=== PATIENT | female | born 1970 | race Caucasian/White ===

== ENCOUNTER → 2016-06-10 | Outpatient (CLI) | payer OTHER ==
--- NOTE | 2016-06-14 09:46 | SLEEPHOME ---
DATE OF PROCEDURE: 06/10/2016 REFERRING PROVIDER: Radha Decker NP INTERPRETATION: Diagnostic home sleep testing was performed due to concern for the obstructive sleep apnea syndrome in this patient with a history of excessive somnolence, nonrestorative sleep, comorbidities of hypertension and diabetes. For testing, a NOX-T3 respiratory monitoring device was utilized. Continuous record was made of pulse, oxygen saturation, chest and abdominal strain, air flow, and body position. 9 hours and 59 minutes of data were reviewed. Of these, 8 hours and 59 minutes were marked as time in bed. During the interval marked time in bed, there were 49 respiratory events identified of 10 seconds in duration or greater for a respiratory event index of 5.5 per hour. The events were primarily obstructive. Baseline oxygen saturation was 91%. Lowest oxygen saturation 85%. Average heart rate 110. Pulse rate ranged 80 to 132. Testing was performed in both the supine and nonsupine positions. IMPRESSION: Abnormal home sleep test with repetitive respiratory events and oxygen desaturations to 85% with a respiratory event index of 5.5 is consistent with the obstructive sleep apnea syndrome. RECOMMENDATION: The patient should be referred for formal in laboratory pressure titration given the occurrence of significant oxygen desaturations.
== END ==
LOC: M SLEEP 06-06 14:27
PROVIDERS: ATTEND Nurse Practitioner Adult Health
DX: G47.30 Sleep apnea, unspecified (principal); R40.0 Somnolence

== ENCOUNTER → 2016-12-30 | Outpatient (CLI) | payer OTHER ==
[~2016-12-30] MED LIST: AMMO12CR4 TOP; ATOR1TAB21 PO; ATOR40TA75 PO; DILT120C82 PO; EFFE75CA75 PO; HYDR-3713 PO; INDE80CA PO; LAMI25TA PO; LATA5OPD OU; LISI20TA PO; NICO4GUM8 PO; NICODIS TD; OMEP40CA2 PO; ONDA4TAB6 PO; OXYB5TAB10 PO; PAXI20TA29 PO; TIZA4CAP3 PO; TOPI25TA10 PO; TRAZ50TA11 PO; VENTAER INH; [UNRECOGNIZED DRUG - CODE] MT
--- NOTE | 2016-12-30 16:22 | REP ---
MRI CERVICAL SPINE: HISTORY: Neck pain. COMPARISON: 05/20/2016 The prior examination showed a C5-6 disc bulge along with degenerative facet and uncovertebral joint changes bilaterally causing mild bilateral foraminal stenosis. The craniovertebral junction is unchanged. No abnormal signal has developed in the imaged portion of the spinal cord. Vertebral body height and alignment is unchanged remaining within normal limits. Loss of disc space height and disc hydrational signal is again seen, status quo. At the C2-3 level, there is no change. There is no disc herniation, foraminal narrowing or central canal stenosis. At the C3-4 level, there is no change. There is no disc herniation, foraminal narrowing or central canal stenosis. At the C4-5 level, there is no change. There is no disc herniation, foraminal narrowing or central canal stenosis. At the C5-6 level, note is again made of a broad-based annular bulge seen in conjunction with mild degenerative facet and uncovertebral joint changes bilaterally. There is mild bilateral foraminal stenosis, status quo. No acute disc extrusion or madelaine central canal stenosis has developed, however, there is mild effacement of the anterior thecal sac. At the C6-7 level, there is no change. There is no disc herniation, foraminal narrowing or central canal stenosis. There is no change at the C7-T1 level. There is no abnormality. IMPRESSION: Broad-based annular bulge and other findings at the C5-6 level essentially unchanged from the prior examination as described above. Signed by Meliton Hernandez DO 12/30/2016 04:49 P
== END ==
LOC: M PLARAD 13:29
PROVIDERS: ATTEND Nurse Practitioner Family
DX: M54.2 Cervicalgia (principal); M51.37 Other intervertebral disc degeneration, lumbosacral region; M51.36 Other intervertebral disc degeneration, lumbar region; M47.812 Spondylosis without myelopathy or radiculopathy, cervical region; M79.1 Myalgia; M54.16 Radiculopathy, lumbar region; M47.817 Spondylosis without myelopathy or radiculopathy, lumbosacral region

== ENCOUNTER 2018-10-26 12:53 | Day surgery (SDC) | payer OTHER ==
[~2018-10-26] VITALS: Ht 165.1 cm; Wt 128.1 kg
[~2018-10-26 12:53] MED LIST changes: +ADME100I SC; -AMMO12CR4 TOP; +AMMO12CR7 TOP; +BASA100I SC; +CETI10CH PO; -DILT120C82 PO; +DILT1CAP PO; +EFFE75CA2 PO; -EFFE75CA75 PO; -INDE80CA PO; +INDE80CA9 PO; +LATA0.0013 OU; +LATA0.0015 OU; -LATA5OPD OU; +LISI20TA3 PO; +METO100T5 PO; +NICO21DI34 TD; -NICODIS TD; +NS 1,000 ML IV ONE; +PARO30TA3 PO; +SING10TA32 PO; +STEG5TAB PO; +TIZA4CAP PO; -TIZA4CAP3 PO; +TRAZ-160 PO; -TRAZ50TA11 PO; +TRUL0.5I SC; +VENL150C43 PO; +VITATAB64 PO
[2018-10-26] MEDS ORDERED: fentaNYL 100 MCG/2 ML INJECTION (J3010) As Ordered ONE (14:56)
[2018-10-26] MEDS ORDERED: PROPOFOL 200 MG/20 ML VIAL As Ordered ONE (14:56)
[2018-10-26] MEDS ORDERED: LIDOCAINE 2% INJ 100 MG/5 ML SDV (FOR ANES.) As Ordered ONE (14:56)
--- NOTE | 2018-10-26 15:11 | ROOR ---
Patient Name: Maryann Richard Procedure Date: 10/26/2018 2:46 PM Date of : 1970 Age: 48 Room: [facility] Gender: Female Note Status: Finalized Procedure: Upper GI endoscopy Indications: Epigastric abdominal pain, Heartburn, Follow-up of gastroparesis, Early satiety, Eructation, Nausea Providers: Franklin JUSTIN MD Referring MD: MICHELLE ART MD Requesting Provider: Medicines: Monitored Anesthesia Care Complications: No immediate complications. Procedure: Pre-Anesthesia Assessment: - The heart rate, respiratory rate, oxygen saturations, blood pressure, adequacy of pulmonary ventilation, and response to care were monitored throughout the procedure. The Endoscope was introduced through the mouth, and advanced to the second part of duodenum. The upper GI endoscopy was accomplished without difficulty. The patient tolerated the procedure well. Findings: The examined esophagus was normal. A single 10 mm submucosal papule (nodule) with no stigmata of recent bleeding was found in the gastric antrum. Keyhole biopsies were taken with a cold forceps for histology. Endoclips x 2 placed. The exam of the stomach was otherwise normal. (large volume/compliant) The examined duodenum was normal. Impression: - Normal esophagus. - A single 1 cm submucosal papule (nodule) found in the stomach. Biopsied, endoclips x 2 placed. - The stomach is otherwise normal. - Normal examined duodenum. Recommendation: - Telephone endoscopist for pathology results in 2 weeks. - Gastroparesis diet: - Eat smaller, more frequent meals throughout the day. - Low fat diet. - Liquid/soft foods are tolerated better than solid foods. - Low fiber/well cooked vegetables are tolerated better than high fiber/fibrous foods/raw vegetables. - Avoid medications that inhibit gastric/intestinal motility such as narcotic medications. Franklin Justin MD Franklin JUSTIN MD 10/26/2018 3:10:49 PM Electronically signed by Franklin JUSTIN MD Number of Addenda: 0 Note Initiated On: 10/26/2018 2:46 PM Estimated Blood Loss: Estimated blood loss: none.
[2018-10-26 15:38] VITALS: BP 106/67
== END 2018-10-26 16:15 | disposition home or self-care (01) ==
LOC: M OPP 12:53
PROVIDERS: ATTEND Internal Medicine Gastroenterology
DX: R10.13 Epigastric pain (principal); R12 Heartburn; R68.81 Early satiety; R14.2 Eructation; R11.0 Nausea; K31.89 Other diseases of stomach and duodenum; K31.84 Gastroparesis
CPT/HCPCS: 43239; 88305; J3010

== ENCOUNTER → 2019-07-08 | Outpatient (CLI) | payer OTHER ==
[~2019-07-08] MED LIST changes: -LISI20TA PO; +LISI20TA19 PO; +LISI20TA20 PO; -LISI20TA3 PO; -NS 1,000 ML IV ONE; -OMEP40CA2 PO; +OMEP40CA97 PO; +PROHANCE 279.3MG/ML 5ML VIAL (A9576) As Ordered ONE; -TRAZ-160 PO; +TRAZ-252 PO
--- NOTE | 2019-07-08 12:44 | REP ---
MRI LIVER AND ABDOMEN WITHOUT AND WITH IV CONTRAST: HISTORY: Fatty infiltration versus mass lesion in the liver. Abnormal findings on diagnostic imaging of the liver and biliary tract. Comparison is made with CT imaging of the abdomen pelvis and [facility] January 07, 2019. TECHNIQUE: Axial and coronal imaging planes utilized. T1- and T2-weighted sequences include spin-echo, fast spin echo, diffusion, in and [id number], and dynamically acquired pre and postcontrast T1 fat sat imaging. Gadolinium enhancement dose is 10 mL of intravenous ProHance. MRI FINDINGS: The right kidney is again noted to be absent, presumably post surgically. No intrahepatic or extrahepatic biliary ductal dilation is seen. The pancreatic duct is normal in appearance. No pancreatic mass or upper abdominal lymphadenopathy is seen. Bilaterally normal adrenal glands are visible. Diffusion weighted scan show no focal area of restricted diffusion. There is considerable signal dropout throughout most of the liver on [id number] imaging consistent with moderate fatty infiltration. There are areas of fat sparing in the right and left lobe of the liver anteriorly under the costal margin. This corresponds to the pattern on CT. No focal liver mass lesion is appreciated. Pre- and postcontrast imaging of the liver shows no additional abnormality. The spleen is normal in size and homogeneous in texture. Study is otherwise unremarkable. Left kidney shows no abnormality. IMPRESSION: There is evidence of moderate fatty infiltration of the liver. No hepatic or other abdominal mass lesion seen. Right kidney absent. Electronically Signed by Derrick Adrian MD 07/08/2019 03:17 P
== END ==
LOC: M RAD 10:12
PROVIDERS: ATTEND Internal Medicine Gastroenterology
DX: R93.2 Abnormal findings on diagnostic imaging of liver and biliary tract (principal)
CPT/HCPCS: 74183; A9576

== ENCOUNTER 2019-08-16 12:55 | Day surgery (SDC) | payer OTHER ==
[~2019-08-16] VITALS: Ht 165.1 cm; Wt 114.8 kg
[~2019-08-16 12:55] MED LIST changes: +NS 1,000 ML IV ONE; -PROHANCE 279.3MG/ML 5ML VIAL (A9576) As Ordered ONE
[2019-08-16] MEDS ORDERED: LIDOCAINE 2% INJ 100 MG/5 ML SDV (FOR ANES.) As Ordered ONE (13:23)
[2019-08-16] MEDS ORDERED: propofoL 200 MG/20 ML VIAL As Ordered ONE (13:23)
--- NOTE | 2019-08-16 15:06 | ROOR ---
Patient Name: Maryann Richard Procedure Date: 08/16/2019 8:03 AM Date of : 1970 Age: 49 Room: [facility] Gender: Female Note Status: Finalized Procedure: Upper GI endoscopy Indications: Surveillance procedure- follow up gastric nodule, Gastroparesis Providers: Franklin JUSTIN MD Referring MD: MICHELLE ART MD Requesting Provider: Medicines: Monitored Anesthesia Care Complications: No immediate complications. Procedure: Pre-Anesthesia Assessment: - The heart rate, respiratory rate, oxygen saturations, blood pressure, adequacy of pulmonary ventilation, and response to care were monitored throughout the procedure. The Endoscope was introduced through the mouth, and advanced to the second part of duodenum. The upper GI endoscopy was accomplished without difficulty. The patient tolerated the procedure well. Findings: The examined esophagus was normal. A single 8 mm papule (nodule) was found in the gastric antrum. Biopsies were taken with a cold forceps for histology. The exam of the stomach was otherwise normal. The examined duodenum was normal. Impression: - Normal esophagus. - A single papule (nodule) found in the stomach antrum (this is unchanged from previous exam). Biopsied. - Normal examined duodenum. Recommendation: - Observe patient's clinical course. - Gastroparesis diet: - Eat smaller, more frequent meals throughout the day. - Low fat diet. - Liquid/soft foods are tolerated better than solid foods. - Low fiber/well cooked vegetables are tolerated better than high fiber/fibrous foods/raw vegetables. - Avoid medications that inhibit gastric/intestinal motility such as narcotic medications. - Telephone endoscopist for pathology results in 2 weeks. Franklin Justin MD Franklin JUSTIN MD 08/16/2019 3:05:48 PM Electronically signed by Franklin JUSTIN MD Number of Addenda: 0 Note Initiated On: 08/16/2019 8:03 AM Estimated Blood Loss: Estimated blood loss: none.
[2019-08-16 15:08] VITALS: BP 115/74
[2019-08-16] MEDS ORDERED: HumaLOG INSULIN (NovoLOG) PER UNIT SC ONE (17:00)
== END 2019-08-16 19:00 | disposition home or self-care (01) ==
LOC: M OPP 12:55
PROVIDERS: ATTEND Internal Medicine Gastroenterology
DX: K31.89 Other diseases of stomach and duodenum (principal); K31.84 Gastroparesis; D13.1 Benign neoplasm of stomach; I10 Essential (primary) hypertension; E78.00 Pure hypercholesterolemia, unspecified; E11.9 Type 2 diabetes mellitus without complications; R12 Heartburn; M79.7 Fibromyalgia; F41.9 Anxiety disorder, unspecified; F32.9 Major depressive disorder, single episode, unspecified; G43.909 Migraine, unspecified, not intractable, without status migrainosus; F17.210 Nicotine dependence, cigarettes, uncomplicated; J44.9 Chronic obstructive pulmonary disease, unspecified; G47.30 Sleep apnea, unspecified; Z88.1 Allergy status to other antibiotic agents; Z88.2 Allergy status to sulfonamides; Z91.09 Other allergy status, other than to drugs and biological substances; Z79.4 Long term (current) use of insulin; Z79.899 Other long term (current) drug therapy

== ENCOUNTER 2019-11-03 13:02 | Inpatient (IN) | payer OTHER ==
[~2019-11-03] VITALS: Ht 165.1 cm; Wt 110.7 kg
[~2019-11-03 13:02] MED LIST changes: -NS 1,000 ML IV ONE
[2019-11-03 14:55] VITALS: BP 132/96
[2019-11-03] MEDS ORDERED: VITA50005 PO ×2 (15:37)
[2019-11-03] MEDS ORDERED: ATOR80TA59 PO (15:37)
--- NOTE | 2019-11-03 16:05 | HPEPDOC ---
General Date of Admission November 03, 2019 at 14:57 Date of Service: November 03, 2019 Chief Complaint The patient is a 49-year-old female admitted with a reason for visit of Abscess. Source: Patient Exam Limitations: No limitations Timing/Duration: Day(s) Severity: Moderate History of Present Illness Patient is 49 years old female with past medical history of type 2 diabetes, COPD, obesity, hypertension, anxiety who was transferred from the [facility] with left inguinal abscess. Patient stated that on 10/10/19 the left inguinal abscess was drained in the [facility]. After that patient was on the course of antibiotics including Zosyn, vancomycin, clindamycin. Patient stated that around 3-4 days ago she started feeling that abscess was growing again rapidly increasing in size. Patient denied fever, chills, nausea, vomit ing. Patient was found to have white blood count 12.1. Hemoglobin 12.4 potassium 3.4, creatinine 1.4. CT was done and showed large phlegmon in the left groin. Patient denies fever, chills, nausea, vomiting, chest pain, palpitations, diarrhea or dysuria Home Medications Scheduled Ammonium Lactate (Ammonium Lactate) 12 % Cre, 1 DOSE TOP PRN, (Reported) FEET Atorvastatin Calcium (Atorvastatin Calcium) 80 Mg Tablet, 80 MG PO QHS, (Reported) Cetirizine HCl (Cetirizine HCl) 10 Mg Tab.chew, 10 MG PO DAILY, (Reported) Dulaglutide (Trulicity) 1.5 Mg/0.5 Ml Pen.injctr, 1.5 MG SC Q7D, (Reported) MONDAYS Ergocalciferol (Vitamin D2) (Vitamin D2) 50,000 Units Cap, 50,000 UNITS PO QWEEK, (Reported) MONDAYS Ertugliflozin Pidolate (Steglatro) 5 Mg Tablet, 5 MG PO DAILY, (Reported) Insulin Glargine,Hum.rec.anlog (Basaglar Shayikpen U-100) 100 Unit/1 Ml Insuln.pen, 60 UNIT SC BID, (Reported) Insulin Lispro (Admelog) 100 Unit/1 Ml Vial, 6 UNIT SC QAM, (Reported) Insulin Lispro (Admelog) 100 Unit/1 Ml Vial, 8 UNIT SC DAILY, (Reported) NOON WITH LUNCH Insulin Lispro (Admelog) 100 Unit/1 Ml Vial, 12 UNIT SC QPM, (Reported) DINNER Lamotrigine (Lamictal) 25 Mg Tab, 25 PO BID, (Reported) Lisinopril/Hydrochlorothiazide (Lisinopril-Hctz 20-25 mg Tab) 1 Each Tablet, 1 TAB PO QHS, (Reported) Metoprolol Tartrate (Metoprolol Tartrate) 100 Mg Tablet, 100 MG PO BID, (Reported) Montelukast Sodium (Singulair) 10 Mg Tablet, 10 MG PO QHS, (Reported) Omeprazole (Omeprazole) 40 Mg Cap, 40 PO BID, (Reported) Oxybutynin Chloride (Oxybutynin Chloride) 5 Mg Tab, 5 MG PO BID, (Reported) BREAKFAST Venlafaxine HCl (Venlafaxine HCl ER) 150 Mg Cap.er.24h, 150 MG PO DAILY, (Reported) Scheduled PRN Ondansetron (Ondansetron Odt) 4 Mg Tab, 4 MG PO Q6H PRN for NAUSEA OR VOMITING, (Reported) Allergies Coded Allergies: TAPE (Verified Allergy, Mild, redness, itching, 08/08/19) sulfamethoxazole (Verified Allergy, Unknown, tremors, 08/08/19) trimethoprim (Verified Allergy, Unknown, tremors, 08/08/19) Past Medical History Medical History Diabetes type 2, hyperglycemia, nephrolithiasis, COPD, sleep apnea, obesity, current smoker, acid reflux, morbid obesity, hyperlipidemia, hirsutism, anxiety, diabetes neuropathy, staghorn kidney stone right Surgical History Right nephrectomy in 2014, appendectomy, carpal tunnel surgery, cholecystectomy, hysterectomy, nephrectomy Family History I personally reviewed family history and found not pertinent Social History * Smoker: current smoker Alcohol: Denies Drugs: denies A-FIB/CHADSVASC A-FIB History Current/History of A-Fib/PAF?: No Current PO Anticoag Therapy: No Review of Systems Constitutional: Denies: Chills, Fever Eyes: Denies: Pain, Vision change ENT: Denies: Head Aches Skin: Reports: Lesions (left inguinal abscess) Pulmonary: Denies: Dyspnea Cardiovascular: Denies: Chest Pain Gastrointestinal: Denies: Nausea, Vomiting Genitourinary: Denies: Dysuria, Frequency Hematologic: Denies: Bruising Endocrine: Denies: Polydipsia, Polyphagia Neurological: Denies: Weakness Psych: Reports: Mood Normal Physical Examination General Exam: Positive: Alert, Cooperative Eye Exam: Positive: PERRLA, Conjunctiva & lids normal ENT Exam: Positive: Atraumatic Neck Exam: Positive: Supple; Negative: JVD Chest Exam: Positive: Clear to auscultation Heart Exam: Positive: Rate Normal Telemetry: Positive: No significant arrhythmia Abdomen Exam: Positive: Normal bowel sounds, Other (left inguinal abscess) Extremity Exam: Negative: Clubbing, Cyanosis Skin Exam: Positive: Lesion (left inguinal abscess 10 cm over 8 cm) Neuro Exam: Positive: Strength at 5/5 X4 ext, Cranial Nerves 3-12 NL Psych Exam: Positive: Mental status NL Vital Signs Vital Signs Date Time Temp Pulse Resp B/P (MAP) Pulse Ox O2 Delivery O2 Flow Rate FiO2 11/03/19 14:55 98.3 95 16 132/96 (108) 99 Room Air Assessment/Plan Patient is 49 years old female with past medical history of type 2 diabetes, COPD, obesity, hypertension, anxiety who was transferred from the [facility] with left inguinal abscess. Patient stated that on 10/10/19 the left inguinal abscess was drained in the [facility]. After that patient was on the course of antibiotics including Zosyn, vancomycin, clindamycin. Patient stated that around 3-4 days ago she started feeling that abscess was growing again rapidly increasing in size. Patient denied fever, chills, nausea, vomiting. Patient was found to have white blood count 12.1. Hemoglobin 12.4 potassium 3.4, creatinine 1.4. CT was done and showed large phlegmon in the left groin. Patient denies fever, chills, nausea, vomiting, chest pain, palpitations, diarrhea or dysuria Problems (1) Abscess Status: Acute Problem Text: Left inguinal abscess Appreciate/agree with surgical consult IV vancomycin and Zosyn IV MRSA screen (2) Type 2 diabetes mellitus Problem Text: Diabetes diet Insulin sliding scale Detemir 60 units twice a day (3) Hyperlipidemia Status: Chronic Problem Text: Continue statins (4) Hypertension Status: Chronic Problem Text: Blood pressure currently is under control Continue home meds (5) GERD (gastroesophageal reflux disease) Status: Chronic Problem Text: Continue Protonix Plan / VTE VTE Prophylaxis Ordered?: Yes DROZHZHIN,MARIELLA DO November 03, 2019 16:05
[2019-11-03] MEDS ORDERED: DEXTROSE 50% 50 ML SYRINGE IV PRN (16:15)
[2019-11-03] MEDS ORDERED: GLUCOSE 4GM CHEW TABLET PO PRN (16:15)
[2019-11-03] MEDS ORDERED: LACTIC ACID 12% LOTION 225 GM BTL TOP PRN (16:15)
[2019-11-03] MEDS ORDERED: ONDANSETRON 4 MG ORAL DISINTEGRATING TAB PO PRN (16:15)
[2019-11-03] MEDS ORDERED: GLUCAGON INJ 1MG VIAL SC PRN (16:15)
[2019-11-03 16:34] LABS: HEMATOCRIT 38.9 % (36.0-47.0); HEMOGLOBIN 12.6 g/dl (12.0-15.5); MEAN CORPUSCULAR HEMOGLOBIN 29.3 pg (27.0-33.0); MEAN CORPUSCULAR HGB CONC 32.4 g/dl (32.0-36.5); MEAN CORPUSCULAR VOLUME 90.5 fl (80.0-96.0); PLATELET COUNT, AUTOMATED 175 10^3/uL (150-450); WHITE BLOOD COUNT 13.7 10^3/uL (4.0-10.0)
[2019-11-03 16:58] LABS: ALBUMIN 2.7 GM/DL (3.2-5.2); BILIRUBIN,TOTAL 0.3 MG/DL (0.2-1.0); CALCIUM LEVEL 6.1 MG/DL (8.5-10.1); CREATININE FOR GFR 1.35 MG/DL (0.55-1.30); GLOMERULAR FILTRATION RATE 44.2 (>51); POTASSIUM SERUM 3.5 MEQ/L (3.5-5.1); TOTAL PROTEIN 6.7 GM/DL (6.4-8.2)
[2019-11-03] MEDS ORDERED: VANCOMYCIN HCL 1,000 MG, VIAL MATE ADAPTER 1 EACH in D5W 250 ML IV ONE (17:00)
[2019-11-03] MEDS: HumaLOG INSULIN (NovoLOG) PER UNIT SC SCH ×2 (17:30→21:00)
[2019-11-03] MEDS ORDERED: traMADol 50 MG TAB PO PRN (17:45)
[2019-11-03] MEDS: PIPERACILLIN/TAZOBACTAM SOD 3.375 GM in D5W MINI-BAG PLUS 50 ML IV SCH (19:02)
[2019-11-03] MEDS: MONTELUKAST 10 MG TAB PO SCH (21:38)
[2019-11-03] MEDS: hydroCHLOROthiazide 25 MG TAB PO SCH (21:38)
[2019-11-03] MEDS: ATORVASTATIN 20 MG TAB PO SCH (21:38)
[2019-11-03] MEDS: lamoTRIgine 25 MG TAB PO SCH (21:38)
[2019-11-03] MEDS: OMEPRAZOLE 20 MG CAP PO SCH (21:38)
[2019-11-03] MEDS: METOPROLOL TARTRATE 100 MG TAB PO SCH (21:39)
[2019-11-03] MEDS: lisinopriL 20 MG TAB PO SCH (21:39)
[2019-11-03] MEDS: HEPARIN SOD (PORCINE) 5000UNITS/ML VIAL (J1644 PER 1000UNITS) SC SCH (21:39)
[2019-11-03] MEDS: LEVEMIR (INSULIN DETEMIR) 1 UNITS/0.01ML SC SCH (21:40)
[2019-11-03] MEDS: oxyBUTYnin 5 MG TAB PO SCH (21:41)
[2019-11-03] MEDS: VANCOMYCIN HCL 1,000 MG, VIAL MATE ADAPTER 1 EACH in D5W 250 ML IV SCH (21:42)
[2019-11-03 22:00] VITALS: BP_SYST 120; BP_SYST 170; BP_DIAS 83; BP_DIAS 92
[2019-11-04] MEDS: PIPERACILLIN/TAZOBACTAM SOD 3.375 GM in D5W MINI-BAG PLUS 50 ML IV SCH ×3 (00:12→14:13)
[2019-11-04 06:00] VITALS: BP 112/58
[2019-11-04 06:05] LABS: HEMATOCRIT 34.9 % (36.0-47.0); MEAN CORPUSCULAR HGB CONC 31.5 g/dl (32.0-36.5); MEAN CORPUSCULAR VOLUME 92.1 fl (80.0-96.0); PLATELET COUNT, AUTOMATED 162 10^3/uL (150-450); RED BLOOD COUNT 3.79 10^6/uL (4.00-5.40); WHITE BLOOD COUNT 11.2 10^3/uL (4.0-10.0)
[2019-11-04 06:33] LABS: CALCIUM LEVEL 5.9 MG/DL (8.5-10.1); CREATININE FOR GFR 1.33 MG/DL (0.55-1.30); MAGNESIUM LEVEL 0.4 MG/DL (1.8-2.4); POTASSIUM SERUM 3.3 MEQ/L (3.5-5.1)
[2019-11-04] MEDS: MAG SULF 1GM/100ML (MAG RUN) 1 GM in IV 1 EA IV SCH ×2 (07:06→08:24)
[2019-11-04] MEDS: HumaLOG INSULIN (NovoLOG) PER UNIT SC SCH ×4 (07:30→20:31)
[2019-11-04] MEDS ORDERED: POTASSIUM CHLORIDE 10 MEQ SR TABLET PO ONE (08:00)
[2019-11-04] MEDS: CALCIUM GLUCONATE 1,000 MG in D5W MINI-BAG PLUS 100 ML IV ONE ×2 (10:18→12:52)
[2019-11-04] MEDS: VENLAFAXINE **XR** 75MG CAPSULE PO SCH (10:18)
[2019-11-04] MEDS: OMEPRAZOLE 20 MG CAP PO SCH ×2 (10:19→20:42)
[2019-11-04] MEDS: lamoTRIgine 25 MG TAB PO SCH ×2 (10:19→20:41)
[2019-11-04] MEDS: oxyBUTYnin 5 MG TAB PO SCH ×2 (10:20→20:42)
[2019-11-04] MEDS: CETIRIZINE (ZyrTEC) 10 MG TAB PO SCH (10:20)
[2019-11-04] MEDS: LEVEMIR (INSULIN DETEMIR) 1 UNITS/0.01ML SC SCH ×2 (10:20→20:41)
[2019-11-04] MEDS: HEPARIN SOD (PORCINE) 5000UNITS/ML VIAL (J1644 PER 1000UNITS) SC SCH ×3 (10:20→20:41)
[2019-11-04] MEDS: METOPROLOL TARTRATE 100 MG TAB PO SCH ×2 (10:29→20:31)
[2019-11-04] MEDS: VANCOMYCIN HCL 1,000 MG, VIAL MATE ADAPTER 1 EACH in D5W 250 ML IV SCH (11:31)
[2019-11-04] MEDS ORDERED: CLIN150C14 PO (11:40)
[2019-11-04] MEDS ORDERED: MAG SULF 1GM/100ML (MAG RUN) 1 GM in IV 1 EA IV ONE ×2 (12:00→14:15)
[2019-11-04] MEDS ORDERED: MAGNESIUM GLUCONATE 500 MG TAB PO ONE ×2 (13:00→15:00)
[2019-11-04 14:00] VITALS: BP 93/50
[2019-11-04 14:04] LABS: CALCIUM LEVEL 6.1 MG/DL (8.5-10.1); CREATININE FOR GFR 1.55 MG/DL (0.55-1.30); GLOMERULAR FILTRATION RATE 37.7 (>51); MAGNESIUM LEVEL 0.9 MG/DL (1.8-2.4); POTASSIUM SERUM 3.5 MEQ/L (3.5-5.1)
[2019-11-04] MEDS ORDERED: POTASSIUM PHOSPHATE INJ 20 MMOL in D5W 250 ML IV ONE ×2 (15:00→16:00)
--- NOTE | 2019-11-04 16:36 | IPNPDOC ---
Text Note Date of Service The patient was seen on 11/04/19. NOTE Subjective: No any acute events overnight. Patient denied fever, chills, naus ea, vomiting, diarrhea or dysuria Objective: VITAL SIGNS: Please see below. GENERAL: Morbidly obese female HEENT: NCAT, anicteric sclera, BRANDY NECK: supple, no JVD CARDIOVASCULAR EXAMINATION: NS1S2, regular rate/rhythm RESPIRATORY EXAMINATION: CTA b/l, no wheezes/rales/rhonchi ABDOMINAL EXAMINATION: positive bowel sounds x 4, NT, obese, leuk trase in The Left Inguinal Area EXTREMITIES: +1 edema bilaterally SKIN: warm, no rashes. NEUROLOGICAL EXAMINATION: AAO x 3, no motor/sensory deficits Assessment and plan: Patient is 49 years old female with past medical history of type 2 diabetes, COPD, obesity, hypertension, anxiety who was transferred from the [facility] with left inguinal abscess. Patient stated that on 10/10/19 the left inguinal abscess was drained in the [facility]. After that patient was on the course of antibiotics including Zosyn, vancomycin, clindamycin. Patient stated that around 3-4 days ago she started feeling that abscess was growing again rapidly increasing in size. Patient denied fever, chills, nausea, vomiting. Patient was found to have white blood count 12.1. Hemoglobin 12.4 potassium 3.4, creatinine 1.4. CT was done and showed large phlegmon in the left groin. Patient denies fever, chills, nausea, vomiting, chest pain, palpitations, diarrhea or dysuria. Surgical team consulted patient, Dr Rocha recommended packing and dressing daily. On 11/04/19 patient developed profound hypomagnesemia. Replaced. Most likely discharge tomorrow (1) Abscess Left inguinal abscess By mouth clindamycin Surgical team consulted patient, Dr Rocha recommended packing and dressing daily. (2) Type 2 diabetes mellitus Diabetes diet Insulin sliding scale Detemir 60 units twice a day (3) Hyperlipidemia Continue statins (4) Hypertension Blood pressure currently is under control Continue home meds (5) GERD (gastroesophageal reflux disease) Continue Protonix Hypomagnesemia Continue replacement VS,Fishbone, I+O VS, Fishbone, I+O Laboratory Tests 11/04/19 05:31 11/04/19 13:19 Vital Signs Date Time Temp Pulse Resp B/P (MAP) Pulse Ox O2 Delivery O2 Flow Rate FiO2 11/04/19 14:00 97.1 74 19 93/50 (64) 98 11/03/19 22:00 Room Air I&O- Last 24 Hours up to 6 AM 11/04/19 06:00 Intake Total 920 ml Output Total 1451 ml Balance -531 ml MARIELLA WRIGHT DO Nov 04, 2019 16:36
[2019-11-04 18:13] LABS: ALBUMIN 2.7 GM/DL (3.2-5.2); BILIRUBIN,TOTAL 0.3 MG/DL (0.2-1.0); CALCIUM LEVEL 6.3 MG/DL (8.5-10.1); CREATININE FOR GFR 1.77 MG/DL (0.55-1.30); GLOMERULAR FILTRATION RATE 32.3 (>51); MAGNESIUM LEVEL 1.3 MG/DL (1.8-2.4); POTASSIUM SERUM 3.5 MEQ/L (3.5-5.1); TOTAL PROTEIN 6.3 GM/DL (6.4-8.2)
[2019-11-04] MEDS: hydroCHLOROthiazide 25 MG TAB PO SCH (20:31)
[2019-11-04] MEDS: lisinopriL 20 MG TAB PO SCH (20:33)
[2019-11-04] MEDS: MONTELUKAST 10 MG TAB PO SCH (20:41)
[2019-11-04] MEDS: ATORVASTATIN 20 MG TAB PO SCH (20:41)
[2019-11-04 22:00] VITALS: BP 106/72
[2019-11-05 06:00] VITALS: BP 105/63
[2019-11-05 06:00] LABS: HEMATOCRIT 37.7 % (36.0-47.0); HEMOGLOBIN 11.5 g/dl (12.0-15.5); MEAN CORPUSCULAR HEMOGLOBIN 28.1 pg (27.0-33.0); MEAN CORPUSCULAR HGB CONC 30.5 g/dl (32.0-36.5); MEAN CORPUSCULAR VOLUME 92.2 fl (80.0-96.0); PLATELET COUNT, AUTOMATED 183 10^3/uL (150-450); RED BLOOD COUNT 4.09 10^6/uL (4.00-5.40); WHITE BLOOD COUNT 8.6 10^3/uL (4.0-10.0)
[2019-11-05 06:30] LABS: ALBUMIN 2.6 GM/DL (3.2-5.2); BILIRUBIN,TOTAL 0.2 MG/DL (0.2-1.0); CALCIUM LEVEL 6.2 MG/DL (8.5-10.1); CREATININE FOR GFR 1.85 MG/DL (0.55-1.30); GLOMERULAR FILTRATION RATE 30.7 (>51); MAGNESIUM LEVEL 1.3 MG/DL (1.8-2.4); PHOSPHORUS LEVEL 4.2 MG/DL (2.5-4.9); POTASSIUM SERUM 3.8 MEQ/L (3.5-5.1); TOTAL PROTEIN 6.3 GM/DL (6.4-8.2)
[2019-11-05] MEDS: HumaLOG INSULIN (NovoLOG) PER UNIT SC SCH ×2 (07:30→12:33)
[2019-11-05] MEDS: MAG SULF 1GM/100ML (MAG RUN) 1 GM in IV 1 EA IV SCH ×3 (08:34→10:53)
[2019-11-05] MEDS: NS 1,000 ML IV SCH ×2 (08:35→10:53)
[2019-11-05] MEDS: HEPARIN SOD (PORCINE) 5000UNITS/ML VIAL (J1644 PER 1000UNITS) SC SCH (09:00)
--- NOTE | 2019-11-05 09:46 | CR ---
DATE OF CONSULTATION: 11/04/2019 REASON FOR CONSULTATION: Left groin abscess. HISTORY OF PRESENT ILLNESS: The patient is a 49-year-old female with a very complicated past medical history. She developed an abscess in the left groin over a month ago. She had it drained with about eight separate incisions at [facility] and had drains placed just over a month ago on the of last month. The drains were removed by her surgeon. She continued on antibiotics, but stopped her clindamycin about 3-4 days ago because she felt that she was getting nauseous from it. She went back to [facility] yesterday complaining of the nausea, vomiting and feeling that her abscess was starting to grow again, so she was diagnosed with a recurrent abscess and had a white count of 12.1. Since they do not have a surgeon available for another month, she was transferred here for evaluation. PAST MEDICAL HISTORY: Diabetes, hyperglycemia, nephrolithiasis, chronic obstructive pulmonary disease (COPD), sleep apnea, obesity, tobacco abuse, gastroesophageal reflux disease, hyperlipidemia, anxiety. PAST SURGICAL HISTORY: Right nephrectomy, appendectomy, carpal tunnel surgery, cholecystectomy, hysterectomy. ALLERGIES: - TAPE - SULFAMETHOXAZOLE TRIMETHOPRIM MEDICATIONS: Please see med record. REVIEW OF SYSTEMS: Pertinent positives and negatives as stated in history of present illness (HPI). PHYSICAL EXAMINATION: General: Alert and oriented x3. No acute distress. Vitals: Temperature 97.8, pulse 80, respirations 19, blood pressure 112/58, pulse oximetry 98% room air. HEENT: Pupils equal round and react to light and accommodation. Heart: S1, S2. Regular rate and rhythm. Abdomen: Nontender, nondistended. Extremities: Bilateral lower extremity edema. Skin: On the left groin, there is a large amount of swelling. There is at least four incisions that I can see, three of which appear to be mostly healed. The one the right in the medial proximal groin was about 3-1/2 cm in length and at least 3 cm deep. There was a little bit of purulent thin fluid in fluid draining from this area, but the casillas of this area looked very clean and healthy. There were no palpable fluid collections, just some induration in this area. LABORATORY DATA: White count 13.7 down to 11.2, hemoglobin 11, platelets 162, potassium 3.3, creatinine 1.33, calcium 5.9, magnesium 0.4. IMAGING STUDIES: No recent imaging here. ASSESSMENT/PLAN: The patient is a 49-year-old female with recent abscess in the left groin, drains by a physician in [place] over a month ago, had her drains removed on the , and was supposed to continue with antibiotics, but she stopped her antibiotics about 3-4 days ago due to nausea and vomiting, and since then has had increased swelling and drainage from the groin area. RECOMMENDATIONS: At this time is to continue with antibiotics and wound care. She will need continued packing when she goes home. There is a lot of induration and swelling in the area, but I do not feel any fluid collections that are drainable. There is an open wound in the groin that is already present. I instructed the nurse to repack this wound with a 1/4 inch Iodoform packing and just cover it with dry gauze. I feel that changing this dressing once a day will be sufficient to help her continue healing of this process. I discussed the findings with the hospitalist in person and she is stable for discharge whenever he feels ready and can get home care set up for her.
[2019-11-05] MEDS: oxyBUTYnin 5 MG TAB PO SCH (09:57)
[2019-11-05] MEDS: VENLAFAXINE **XR** 75MG CAPSULE PO SCH (09:57)
[2019-11-05] MEDS: OMEPRAZOLE 20 MG CAP PO SCH (09:57)
[2019-11-05] MEDS: CETIRIZINE (ZyrTEC) 10 MG TAB PO SCH (09:57)
[2019-11-05] MEDS: lamoTRIgine 25 MG TAB PO SCH (09:57)
[2019-11-05] MEDS: LEVEMIR (INSULIN DETEMIR) 1 UNITS/0.01ML SC SCH (09:58)
[2019-11-05] MEDS: NS 500 ML IV ONE ×2 (09:59→10:53)
[2019-11-05] MEDS: METOPROLOL TARTRATE 100 MG TAB PO SCH ×2 (10:00→10:14)
[2019-11-05 10:14] VITALS: BP 116/62
[2019-11-05] MEDS ORDERED: CLINDAMYCIN 300 MG in IV 1 EA IV SCH (12:00)
[2019-11-05 14:36] LABS: CALCIUM LEVEL 6.4 MG/DL (8.5-10.1); CREATININE FOR GFR 1.83 MG/DL (0.55-1.30); GLOMERULAR FILTRATION RATE 31.1 (>51); POTASSIUM SERUM 3.9 MEQ/L (3.5-5.1)
[2019-11-05] MEDS ORDERED: NS 1,000 ML IV ONE (15:00)
[2019-11-05] MEDS ORDERED: MAGN400C PO (15:37)
--- NOTE | 2019-11-05 15:39 | DS.PDOC ---
Discharge Summary General Date of Admission November 03, 2019 at 14:57 Date of Discharge 11/05/2019 Discharge Summary PROCEDURES PERFORMED DURING STAY: [None]. ADMITTING DIAGNOSES / DISCHARGE DIAGNOSES: Left inguinal abscess KOKI on CKD, improving Hypomagnesemia DM2 DLP HTN Hypomagnesemia GERD DVT prophylaxis COMPLICATIONS/CHIEF COMPLAINT: Abscess. HISTORY OF PRESENT ILLNESS: Patient is a 49-year-old female with a past medical history ofHTN type 2 diabetes, COPD, anxiety, and obesity who was transferred from [facility] with a left inguinal abscess. He reported that he had his left inguinal abscess drained at [facility] and 10/09. Was discharged home after he had improvement subsequently had worsening of abscess collection and presented again to the emergency room for further evaluation. Patient was transferred to [facility] for evaluation with surgery. Patient was admitted to hospitalist service for further evaluation and treatment and Gen. surgery was called on consultation. HOSPITAL COURSE: Left inguinal abscess - Remains hemodynamically stable and afebrile - Leukocytosis resolved - s/p Drainage - Was evaluated by surgery - Will continue with clindamycin orally and have outpatient follow-up with general surgery KOKI on CKD, improving - Unclear what patient's baseline creatinine is - Patient's creatinine was repeated after receiving IV fluid hydration has had some improvement - Patient continues to avoid nephrotoxic medications. Advised avoiding NSAID medications - Will discontinue Lisinopril / HCTZ - Patient continues to drink fluids orally; encouraged increased fluid hydration - Will have repeat basic metabolic panel completed on 11/06 with results forwarded to her PCP, Dr. Minh Art, script provided Hypomagnesemia - Will supplement via IV - Will c/w oral supplementation of magnesium DM2 - c/w ISS and Levemir DLP - c/w Atorvastatin HTN - Blood pressure is well-controlled - Will discontinue lisinopril and hydrochlorothiazide - c/w Metoprolol Hypomagnesemia - Will supplement GERD - c/w Protonix DVT prophylaxis - c/w TEDs/Sequentials DISCHARGE MEDICATIONS: Please see below. ALLERGIES: Please see below. PHYSICAL EXAMINATION ON DISCHARGE: Vitals (See below) General: Lying in bed, no acute distress, comfortable, AAOx3 HEENT: NC, AT CVS: +S1S2 Lungs: Fair air entry b/l, no appreciable wheezing, rhonchi or crackles Abdomen: Soft, ND, NT Extremities: No evidence of edema, - Calf tenderness LABORATORY DATA: Please see below. ACTIVITY: [As tolerated]. DISCHARGE PLAN: Follow-up with Dr. Robson Art within 7 days Remain compliant with treatment plan and medications Return to the ER if you experience any problems DISPOSITION: Home with services DISCHARGE CONDITION: [Stable]. TIME SPENT ON DISCHARGE: 35 minutes. Vital Signs/I&Os Vital Signs Date Time Temp Pulse Resp B/P (MAP) Pulse Ox O2 Delivery O2 Flow Rate FiO2 11/05/19 10:14 88 116/62 11/05/19 06:00 98.4 20 94 Room Air I&O- Last 24 Hours up to 6 AM 11/05/19 06:00 Intake Total 2710 ml Output Total 0 ml Balance 2710 ml Laboratory Data Labs 24H Laboratory Tests 2 11/04/19 16:18: Bedside Glucose (Misc Panel) 121H 11/04/19 17:27: Anion Gap 9, Glomerular Filtration Rate 32.3L, Calcium Level 6.3L, Magnesium Level 1.3L, Total Bilirubin 0.3, Aspartate Amino Transf (AST/SGOT) 21, Alanine Aminotransferase (ALT/SGPT) 29, Alkaline Phosphatase 91, Total Protein 6.3L, Al bumin 2.7L, Albumin/Globulin Ratio 0.8L 11/04/19 20:17: Bedside Glucose (Misc Panel) 115H 11/05/19 05:37: Anion Gap 4L, Glomerular Filtration Rate 30.7L, Calcium Level 6.2L, Magnesium Level 1.3L, Total Bilirubin 0.2, Aspartate Amino Transf (AST/SGOT) 14, Alanine Aminotransferase (ALT/SGPT) 25, Alkaline Phosphatase 79, Total Protein 6.3L, Albumin 2.6L, Albumin/Globulin Ratio 0.7L, Nucleated Red Blood Cells % (auto) 0.0, Phosphorus Level 4.2 11/05/19 12:02: Bedside Glucose (Misc Panel) 104 11/05/19 13:55: Anion Gap 4L, Glomerular Filtration Rate 31.1L, Calcium Level 6.4L CBC/BMP Laboratory Tests 11/04/19 17:27 11/05/19 05:37 11/05/19 13:55 FSBS Laboratory Tests Test 11/04/19 16:18 11/04/19 20:17 11/05/19 12:02 Range/Units Bedside Glucose (Misc Panel) 121 115 104 70-105 MG/DL Microbiology Microbiology 11/03/19 Blood Culture - Preliminary, Resulted No growth after 24 hours . All specim... Discharge Medications Scheduled Ammonium Lactate (Ammonium Lactate) 12 % Cre, 1 DOSE TOP PRN, (Reported) FEET Atorvastatin Calcium (Atorvastatin Calcium) 80 Mg Tablet, 80 MG PO QHS, (Reported) Cetirizine HCl (Cetirizine HCl) 10 Mg Tab.chew, 10 MG PO DAILY, (Reported) Clindamycin Hcl (Clindamycin HCl) 150 Mg Capsule, 150 MG PO QID Dulaglutide (Trulicity) 1.5 Mg/0.5 Ml Pen.injctr, 1.5 MG SC Q7D, (Reported) MONDAYS Ergocalciferol (Vitamin D2) (Vitamin D2) 50,000 Units Cap, 50,000 UNITS PO QWEEK, (Reported) MONDAYS Ertugliflozin Pidolate (Steglatro) 5 Mg Tablet, 5 MG PO DAILY, (Reported) Insulin Glargine,Hum.rec.anlog (Basaglar Kwikpen U-100) 100 Unit/1 Ml Insuln.pen, 60 UNIT SC BID, (Reported) Insulin Lispro (Admelog) 100 Unit/1 Ml Vial, 6 UNIT SC QAM, (Reported) Insulin Lispro (Admelog) 100 Unit/1 Ml Vial, 8 UNIT SC DAILY, (Reported) NOON WITH LUNCH Insulin Lispro (Admelog) 100 Unit/1 Ml Vial, 12 UNIT SC QPM, (Reported) DINNER Lamotrigine (Lamictal) 25 Mg Tab, 25 PO BID, (Reported) Metoprolol Tartrate (Metoprolol Tartrate) 100 Mg Tablet, 100 MG PO BID, (Reported) Montelukast Sodium (Singulair) 10 Mg Tablet, 10 MG PO QHS, (Reported) Omeprazole (Omeprazole) 40 Mg Cap, 40 PO BID, (Reported) Oxybutynin Chloride (Oxybutynin Chloride) 5 Mg Tab, 5 MG PO BID, (Reported) BREAKFAST Venlafaxine HCl (Venlafaxine HCl ER) 150 Mg Cap.er.24h, 150 MG PO DAILY, ( Reported) Scheduled PRN Ondansetron (Ondansetron Odt) 4 Mg Tab, 4 MG PO Q6H PRN for NAUSEA OR VOMITING, (Reported) Allergies Coded Allergies: TAPE (Verified Allergy, Mild, redness, itching, 08/08/19) sulfamethoxazole (Verified Allergy, Unknown, tremors, 08/08/19) trimethoprim (Verified Allergy, Unknown, tremors, 08/08/19) HETAL ART MD Nov 05, 2019 15:28
== END 2019-11-05 17:00 | disposition home health service (06) | DRG 383 ==
LOC: M MSPAV 14:57
PROVIDERS: ADMIT Internal Medicine; ATTEND Internal Medicine
DX: L03.314 Cellulitis of groin (principal); N17.9 Acute kidney failure, unspecified; E11.40 Type 2 diabetes mellitus with diabetic neuropathy, unspecified; E83.42 Hypomagnesemia; N18.9 Chronic kidney disease, unspecified; K21.9 Gastro-esophageal reflux disease without esophagitis; J44.9 Chronic obstructive pulmonary disease, unspecified; F41.9 Anxiety disorder, unspecified; E66.9 Obesity, unspecified; Z79.899 Other long term (current) drug therapy; Z88.2 Allergy status to sulfonamides; Z88.8 Allergy status to other drugs, medicaments and biological substances; F17.200 Nicotine dependence, unspecified, uncomplicated; E78.5 Hyperlipidemia, unspecified; N20.0 Calculus of kidney; I12.9 Hypertensive chronic kidney disease with stage 1 through stage 4 chronic kidney disease, or unspecified chronic kidney disease

== ENCOUNTER → 2021-09-28 | Outpatient (REF) | payer OTHER ==
[~2021-09-28] MED LIST changes: +ATOR80TA59 PO; +CLIN150C17 PO; +ERGO500029 PO; -LISI20TA19 PO; -LISI20TA20 PO; +LISI20TA35 PO; +LISI20TA37 PO; +MAGN400C PO; +OMEP40CA4 PO; -OMEP40CA97 PO; +[UNRECOGNIZED DRUG - CODE] MT; -[UNRECOGNIZED DRUG - CODE] MT
== END ==
LOC: M LAB REF 11:29
PROVIDERS: ATTEND Physician Assistant Medical
DX: R19.7 Diarrhea, unspecified (principal)

== ENCOUNTER → 2021-09-29 | Outpatient (CLI) | payer OTHER | LOC: M LAB 10:47 | PROVIDERS: ATTEND Physician Assistant Medical | DX: R19.7 Diarrhea, unspecified (principal) ==

== ENCOUNTER → 2021-10-14 | Outpatient (CLI) | payer OTHER | LOC: M LABSMTC 09:21 | PROVIDERS: ATTEND Anesthesiology | DX: Z01.812 Encounter for preprocedural laboratory examination (principal); Z20.822 Contact with and (suspected) exposure to COVID-19 ==

== ENCOUNTER 2021-10-19 07:59 | Day surgery (SDC) | payer OTHER ==
[~2021-10-19] VITALS: Ht 165.1 cm; Wt 122.4 kg
[~2021-10-19 07:59] MED LIST changes: +NS 1,000 ML IV ONE
[2021-10-19] MEDS ORDERED: fentaNYL 100 MCG/2 ML INJECTION As Ordered ONE (08:23)
[2021-10-19] MEDS ORDERED: LIDOCAINE 2% 100MG/5ML SDV (FOR ANES.) As Ordered ONE (08:23)
[2021-10-19] MEDS ORDERED: propofoL 500 MG/50 ML VIAL As Ordered ONE (08:23)
[2021-10-19 10:30] VITALS: BP 122/80
== END 2021-10-19 10:42 | disposition home or self-care (01) ==
LOC: M OPP 07:59
PROVIDERS: ATTEND Internal Medicine Gastroenterology
DX: Z12.11 Encounter for screening for malignant neoplasm of colon (principal); Z86.010 Personal history of colon polyps; K63.5 Polyp of colon; K57.30 Diverticulosis of large intestine without perforation or abscess without bleeding; K64.8 Other hemorrhoids; K31.7 Polyp of stomach and duodenum; R12 Heartburn; Z79.02 Long term (current) use of antithrombotics/antiplatelets; Z79.4 Long term (current) use of insulin; Z79.899 Other long term (current) drug therapy; Z88.1 Allergy status to other antibiotic agents; Z91.048 Other nonmedicinal substance allergy status; F17.210 Nicotine dependence, cigarettes, uncomplicated
CPT/HCPCS: 43239; 45385; 88305; J3010

== ENCOUNTER → 2022-03-15 | Outpatient (CLI) | payer OTHER ==
[~2022-03-15] MED LIST changes: -NS 1,000 ML IV ONE
== END ==
LOC: M RAD 12:55
PROVIDERS: ATTEND Physician Assistant Medical
DX: R19.7 Diarrhea, unspecified (principal)

== ENCOUNTER → 2022-09-16 | Outpatient (CLI) | payer OTHER ==
[~2022-09-16] MED LIST changes: +MONT-5 PO; -PAXI20TA29 PO; +PAXI20TA30 PO; -SING10TA32 PO
== END ==
LOC: M RAD 12:17
PROVIDERS: ATTEND Family Medicine
DX: Z12.2 Encounter for screening for malignant neoplasm of respiratory organs (principal); F17.200 Nicotine dependence, unspecified, uncomplicated

== ENCOUNTER → 2022-12-20 | Outpatient (CLI) | payer OTHER ==
[~2022-12-20] MED LIST changes: +DILT120C41 PO; -DILT1CAP PO; +E-Z-GAS II EFFERVESCENT PACKET (SODIUM BICARB./CITRIC ACID/SIMETHICONE) As Ordered ONE; +E-Z-HD 98% w/w 340GM SUSP BTL As Ordered ONE; +E-Z-PAQUE 96% w/w SUSP 176GM BTL As Ordered ONE
== END ==
LOC: M RAD 08:23
PROVIDERS: ATTEND Physician Assistant Medical
DX: K21.9 Gastro-esophageal reflux disease without esophagitis (principal)

== ENCOUNTER 2023-01-30 13:08 | Day surgery (SDC) | payer OTHER ==
[~2023-01-30] VITALS: Ht 165.1 cm; Wt 119.0 kg
[~2023-01-30 13:08] MED LIST changes: +ALBU8.5H INH; +ALPH0.156 OU; +CREO3600 PO; -E-Z-GAS II EFFERVESCENT PACKET (SODIUM BICARB./CITRIC ACID/SIMETHICONE) As Ordered ONE; -E-Z-HD 98% w/w 340GM SUSP BTL As Ordered ONE; -E-Z-PAQUE 96% w/w SUSP 176GM BTL As Ordered ONE; +EZET10TA21 PO; +LAMO25TA4 PO; +LISI20TA33 PO; +NS 1,000 ML IV ONE; +OMEP40CA5 PO; +XALA0.007 OU
[2023-01-30] MEDS ORDERED: propofoL 200 MG/20 ML VIAL As Ordered ONE (14:16)
[2023-01-30] MEDS ORDERED: LIDOCAINE 2% 100MG/5ML SDV (FOR ANES.) As Ordered ONE (14:16)
[2023-01-30] MEDS ORDERED: GLYCOPYRROLATE INJ 0.2 MG/ML 2 ML VIAL As Ordered ONE (14:16)
[2023-01-30 14:52] VITALS: TEMP 96.9
[2023-01-30 15:22] VITALS: BP 157/92; O2SAT 99
== END 2023-01-30 15:25 | disposition home or self-care (01) ==
LOC: M OPP 13:08
PROVIDERS: ATTEND Internal Medicine Gastroenterology
DX: K29.70 Gastritis, unspecified, without bleeding (principal); K31.89 Other diseases of stomach and duodenum; K26.9 Duodenal ulcer, unspecified as acute or chronic, without hemorrhage or perforation; F17.200 Nicotine dependence, unspecified, uncomplicated; Z79.02 Long term (current) use of antithrombotics/antiplatelets; Z79.4 Long term (current) use of insulin; Z79.51 Long term (current) use of inhaled steroids; Z79.899 Other long term (current) drug therapy

== ENCOUNTER 2025-01-02 08:26 | Day surgery (SDC) | payer OTHER ==
[~2025-01-02] VITALS: Ht 165.1 cm; Wt 116.7 kg
[~2025-01-02 08:26] MED LIST changes: +AMMO12CR4 TOP; -AMMO12CR7 TOP; +INSU100V6; +JARD1TAB PO; +LAMO-18 PO; -LAMO25TA4 PO; +LANTINJ4 SC; +METO50TA7 PO; -NS 1,000 ML IV ONE; +ONDA-282 PO; -ONDA4TAB6 PO; -OXYB5TAB10 PO; +OXYB5TAB14 PO; +ROSU40TA81 PO; +TOPI-256 PO; -TOPI25TA10 PO
[2025-01-02] MEDS ORDERED: LIDOCAINE 2% INJ 100 MG/5 ML SYRINGE As Ordered ONE (10:50)
[2025-01-02 11:53] VITALS: BP 164/84; TEMP 96.4; O2SAT 96
== END 2025-01-02 11:47 | disposition home or self-care (01) ==
LOC: M OPP 08:26
PROVIDERS: ATTEND Internal Medicine Gastroenterology
DX: D12.3 Benign neoplasm of transverse colon (principal); K57.30 Diverticulosis of large intestine without perforation or abscess without bleeding; K64.8 Other hemorrhoids; D17.5 Benign lipomatous neoplasm of intra-abdominal organs; Z86.0100 Personal history of colon polyps, unspecified; G47.30 Sleep apnea, unspecified; Z88.2 Allergy status to sulfonamides; Z88.8 Allergy status to other drugs, medicaments and biological substances; Z91.040 Latex allergy status; Z91.048 Other nonmedicinal substance allergy status; Z79.4 Long term (current) use of insulin; Z79.899 Other long term (current) drug therapy; J44.9 Chronic obstructive pulmonary disease, unspecified; F17.210 Nicotine dependence, cigarettes, uncomplicated